=== PATIENT | male | born 2000 | race Caucasian/White ===

== ENCOUNTER 2019-01-07 12:03 | Outpatient (CLI) | payer MEDICAID ==
[~2019-01-07] VITALS: Ht 188 cm; Wt 90.9 kg
[2019-01-07 12:23] VITALS: BP 135/99; Ht 188 cm; Wt 90.9 kg
[2019-01-07 15:00] LABS: BASOPHILS 0.6 % (0-2); EOSINOPHILS 0.4 % (0-7); HEMATOCRIT 45.4 % (42.0-54.0); HEMOGLOBIN 16.7 g/dL (13.5-17.5); IMMATURE GRANULOCYTES 0.2 % (0-5); LYMPHOCYTES 22.8 % (15-50); MCH 30.9 pg (26.0-34.0); MCHC 36.8 g/dL (31.0-37.0); MCV 83.9 fL (80.0-100.0); MEAN PLATELET VOLUME 10.3 fL (7.4-10.4); MONOCYTES 4.7 % (2-11); NEUTROPHILS 71.3 % (40-80); PLATELET COUNT 257 10x3/uL (130-400); RBC 5.41 10x6/uL (4.20-6.10); RDW 12.6 % (11.5-14.5); WBC 11.3 10x3/uL (4.8-10.8)
[2019-01-07 15:02] LABS: ALBUMIN 4.4 g/dL (3.4-5.0); ALKALINE PHOSPHATASE 51 U/L (46-116); ALT (SGPT) 46 U/L (10-68); BILIRUBIN - TOTAL 0.57 mg/dL (0.2-1.3); CALC OSMOLALITY 278 mosm/kg (275-300); CALCIUM 8.8 mg/dL (8.5-10.1); CARBON DIOXIDE 27.3 mmol/L (21.0-32.0); CHLORIDE - SERUM 103 mmol/L (98-107); CREATININE - SERUM 1.1 mg/dL (0.6-1.3); GLUCOSE 97 mg/dL (74-106); POTASSIUM - SERUM 4.1 mmol/L (3.5-5.1); PROTEIN - SERUM 8.1 g/dL (6.4-8.2); SODIUM 140 mmol/L (136-145); UREA NITROGEN 12 mg/dL (7-18); eGFR NON AFRICAN AMERICAN > 90 mL/min (90-120)
--- NOTE | 2019-01-07 18:31 | NUR ---
PATIENT IS SHORT STAY PER ANESTHESIA.
== END 2019-01-07 19:35 | disposition home or self-care (01) ==
LOC: D.OPS 12:03 → D.ER 12:03 → EDSTATUS 14:00 → D.OPS 19:35
PROVIDERS: Family Medicine
DX: S62.334A Displaced fracture of neck of fourth metacarpal bone, right hand, initial encounter for closed fracture (principal); S62.336A Displaced fracture of neck of fifth metacarpal bone, right hand, initial encounter for closed fracture; X58.XXXA Exposure to other specified factors, initial encounter; Z01.812 Encounter for preprocedural laboratory examination

== ENCOUNTER → 2019-01-07 18:24 | Outpatient (CLI) | payer MEDICAID ==
[2019-01-07 12:23] VITALS: BMI 25.7
== END | disposition home or self-care (01) ==
LOC: D.OPS 18:24
DX: S62.334A Displaced fracture of neck of fourth metacarpal bone, right hand, initial encounter for closed fracture (principal); S62.336A Displaced fracture of neck of fifth metacarpal bone, right hand, initial encounter for closed fracture; W22.8XXA Striking against or struck by other objects, initial encounter; Y93.67 Activity, basketball; E66.3 Overweight; Z01.812 Encounter for preprocedural laboratory examination

== ENCOUNTER 2019-09-16 18:54 | Emergency (ER) | payer MEDICAID ==
[~2019-09-16] VITALS: Ht 188 cm; Wt 90.9 kg
[2019-09-16 19:14] VITALS: Ht 188 cm; Wt 90.9 kg
[2019-09-16] MEDS ORDERED: OMEPRAZOLE20 M1 PO (19:14)
[2019-09-16 19:33] LABS: BASOPHILS 0.9 % (0-2); EOSINOPHILS 5.8 % (0-7); HEMATOCRIT 48.9 % (42.0-54.0); HEMOGLOBIN 17.2 g/dL (13.5-17.5); IMMATURE GRANULOCYTES 0.1 % (0-5); LYMPHOCYTES 29.5 % (15-50); MCH 31.7 pg (26.0-34.0); MCHC 35.2 g/dL (31.0-37.0); MCV 90.2 fL (80.0-100.0); MEAN PLATELET VOLUME 10.3 fL (7.4-10.4); MONOCYTES 14.1 % (2-11); NEUTROPHILS 49.6 % (40-80); PLATELET COUNT 252 10x3/uL (130-400); RBC 5.42 10x6/uL (4.20-6.10); RDW 13.6 % (11.5-14.5); WBC 8.9 10x3/uL (4.8-10.8)
[2019-09-16 19:40] LABS: APPEARANCE CLEAR (CLEAR); BILIRUBIN NEGATIVE (NEGATIVE); COLOR YELLOW (YELLOW); GLUCOSE NEGATIVE (NEGATIVE); KETONE NEGATIVE (NEGATIVE); NITRITE NEGATIVE (NEGATIVE); PROTEIN NEGATIVE (NEGATIVE); UROBILINOGEN NORMAL (NORMAL)
[2019-09-16 19:41] LABS: CALC OSMOLALITY 274 mosm/kg (275-300); CALCIUM 9.4 mg/dL (8.5-10.1); CARBON DIOXIDE 31.9 mmol/L (21.0-32.0); CHLORIDE - SERUM 103 mmol/L (98-107); CREATININE - SERUM 1.3 mg/dL (0.6-1.3); GLUCOSE 107 mg/dL (74-106); POTASSIUM - SERUM 3.9 mmol/L (3.5-5.1); SODIUM 138 mmol/L (136-145); UREA NITROGEN 11 mg/dL (7-18); eGFR NON AFRICAN AMERICAN 74 mL/min (90-120)
[2019-09-16 19:51] LABS: ALBUMIN 4.5 g/dL (3.4-5.0); ALKALINE PHOSPHATASE 68 U/L (46-116); ALT (SGPT) 30 U/L (10-68); AMYLASE - SERUM 31 U/L (25-115); LIPASE 116 U/L (73-393); PROTEIN - SERUM 8.5 g/dL (6.4-8.2); TROPONIN-I < 0.017 ng/mL (0.000-0.060)
[2019-09-16] MEDS ORDERED: PROTONIX40 MG PO (21:37)
[2019-09-16] MEDS ORDERED: CARAFATE1 G PO (21:37)
[2019-09-16 22:00] VITALS: BP 112/67
== END 2019-09-16 21:55 | disposition home or self-care (01) ==
LOC: D.ER 18:54
PROVIDERS: Family Medicine
DX: K29.70 Gastritis, unspecified, without bleeding (principal); R11.2 Nausea with vomiting, unspecified

== ENCOUNTER 2020-03-24 11:22 | Emergency (ER) | payer MEDICAID ==
[~2020-03-24] VITALS: Ht 188 cm; Wt 89.5 kg
[~2020-03-24 11:22] MED LIST: CARAFATE1 G PO; OMEPRAZOLE20 M1 PO; PROTONIX40 MG PO
[2020-03-24 11:36] VITALS: Ht 188 cm; Wt 89.5 kg
[2020-03-24 11:44] LABS: BILIRUBIN NEGATIVE (NEGATIVE); GLUCOSE NEGATIVE (NEGATIVE); KETONE NEGATIVE (NEGATIVE); NITRITE NEGATIVE (NEGATIVE); UROBILINOGEN NORMAL (NORMAL)
[2020-03-24 11:56] LABS: BASOPHILS 0.3 % (0-2); EOSINOPHILS 1.9 % (0-7); HEMATOCRIT 46.1 % (42.0-54.0); HEMOGLOBIN 16.1 g/dL (13.5-17.5); IMMATURE GRANULOCYTES 0.4 % (0-5); LYMPHOCYTES 24.3 % (15-50); MCH 30.6 pg (26.0-34.0); MCHC 34.9 g/dL (31.0-37.0); MCV 87.6 fL (80.0-100.0); MEAN PLATELET VOLUME 10.9 fL (7.4-10.4); MONOCYTES 6.7 % (2-11); NEUTROPHILS 66.4 % (40-80); PLATELET COUNT 234 10x3/uL (130-400); RBC 5.26 10x6/uL (4.20-6.10); RDW 13.2 % (11.5-14.5); WBC 7.9 10x3/uL (4.8-10.8)
[2020-03-24 12:07] LABS: APTT 31.1 SECONDS (22.8-39.4); INR 1.04 (0.85-1.17); PROTIME 13.5 SECONDS (11.6-15.0)
[2020-03-24 12:09] LABS: CALC OSMOLALITY 277 mosm/kg (275-300); CALCIUM 8.7 mg/dL (8.5-10.1); CARBON DIOXIDE 26.5 mmol/L (21.0-32.0); CHLORIDE - SERUM 103 mmol/L (98-107); CREATININE - SERUM 1.1 mg/dL (0.6-1.3); GLUCOSE 94 mg/dL (74-106); POTASSIUM - SERUM 3.9 mmol/L (3.5-5.1); SODIUM 139 mmol/L (136-145); UREA NITROGEN 13 mg/dL (7-18); eGFR NON AFRICAN AMERICAN 89 mL/min (90-120)
[2020-03-24 12:15] LABS: ALBUMIN 4.4 g/dL (3.4-5.0); ALKALINE PHOSPHATASE 59 U/L (30-120); ALT (SGPT) 44 U/L (10-68); AMYLASE - SERUM 43 U/L (25-115); BILIRUBIN - TOTAL 0.75 mg/dL (0.2-1.3); LIPASE 65 U/L (73-393); PROTEIN - SERUM 7.5 g/dL (6.4-8.2)
[2020-03-24 14:00] VITALS: BP 140/79
== END 2020-03-24 14:01 | disposition home or self-care (01) ==
LOC: D.ER 11:22
PROVIDERS: Family Medicine
DX: R16.1 Splenomegaly, not elsewhere classified (principal); R16.0 Hepatomegaly, not elsewhere classified; K21.9 Gastro-esophageal reflux disease without esophagitis; R10.12 Left upper quadrant pain

== ENCOUNTER 2021-04-21 21:13 | Emergency (ER) | payer MEDICAID ==
[~2021-04-21] VITALS: Ht 188 cm; Wt 99.8 kg
[2021-04-21 21:20] VITALS: BP 137/87; Ht 188 cm; Wt 99.8 kg
[2021-04-21 21:51] LABS: BASOPHILS 0.7 % (0-2); EOSINOPHILS 0.5 % (0-7); HEMATOCRIT 47.5 % (42.0-54.0); HEMOGLOBIN 16.5 g/dL (13.5-17.5); LYMPHOCYTES 19.2 % (15-50); MCH 29.8 pg (26.0-34.0); MCHC 34.8 g/dL (31.0-37.0); MCV 85.6 fL (80.0-100.0); MEAN PLATELET VOLUME 9.1 fL (7.4-10.4); MONOCYTES 5.4 % (2-11); NEUTROPHILS 74.2 % (40-80); RBC 5.54 10x6/uL (4.20-6.10); RDW 13.2 % (11.5-14.5); WBC 13.2 10x3/uL (4.8-10.8)
[2021-04-21 21:53] LABS: PLATELET COUNT 294 10x3/uL (130-400)
[2021-04-21 21:54] LABS: BILIRUBIN NEGATIVE (NEGATIVE); KETONE NEGATIVE (NEGATIVE); NITRITE NEGATIVE (NEGATIVE); UROBILINOGEN NORMAL mg/dL (< 2)
[2021-04-21 21:58] LABS: CALC OSMOLALITY 277 mosm/kg (275-300); CARBON DIOXIDE 26.2 mmol/L (21.0-32.0); CHLORIDE - SERUM 104 mmol/L (98-107); CREATININE - SERUM 1.2 mg/dL (0.6-1.3); GLUCOSE 112 mg/dL (74-106); POTASSIUM - SERUM 3.8 mmol/L (3.5-5.1); SODIUM 138 mmol/L (136-145); UREA NITROGEN 14 mg/dL (7-18); eGFR NON AFRICAN AMERICAN 80 mL/min (90-120)
[2021-04-21 22:06] LABS: ALBUMIN 4.4 g/dL (3.4-5.0); ALKALINE PHOSPHATASE 61 U/L (30-120); ALT (SGPT) 53 U/L (10-68); AMYLASE - SERUM 38 U/L (25-115); BILIRUBIN - TOTAL 0.28 mg/dL (0.2-1.3); LIPASE 81 U/L (73-393); PROTEIN - SERUM 8.1 g/dL (6.4-8.2); TROPONIN-I < 0.017 ng/mL (0.000-0.060)
== END 2021-04-21 22:49 | disposition left against medical advice (07) ==
LOC: D.ER 21:13
PROVIDERS: Family Medicine
DX: R10.12 Left upper quadrant pain (principal); G89.29 Other chronic pain; K21.9 Gastro-esophageal reflux disease without esophagitis